=== PATIENT | female | born 1970 | race Caucasian/White ===

== ENCOUNTER 2021-12-10 12:00 | Emergency (ER) | payer OTHER, SELFPAY ==
--- NOTE | ~2021-12-10 | CT_ITS ---
EXAMINATION: CT abdomen pelvis w con DATE: 12/10/2021 13:10 INDICATION: Left lower quadrant abdominal pain. TECHNIQUE: Computed tomography (CT) of the abdomen and pelvis was performed with 100 mL Omnipaque 350 intravenous contrast. Automated exposure control and iterative reconstruction technique were employe d. The dose-length product was 1505.10 mGy-cm. COMPARISON: CT abdomen and pelvis 08/04/2016 FINDINGS: The visualized portions of the lung bases are clear without pneumonia or pleural effusion. The heart size is normal. No pericardial effusion. There is an 8 mm cyst in the liver. There are frost ges of cholecystectomy. The spleen, pancreas, adrenal glands, and kidneys are normal. There is a 1.9 cm fibroid in the uterus. There are no dilated loops of bowel. There is wall thickening of the rectos igmoid with fat stranding around the rectum, consistent with colitis. The appendix is normal. There i s electronic device in the right flank subcutaneous fat. There are no pathologically enlarged lymph n odes. There is no free intraperitoneal fluid. There is mild lumbar spondylosis. IMPRESSION: 1. Rectosigmoid colitis. Reviewed, dictated and finalized at location A. IMPRESSION: 1. Rectosigmoid colitis.
[2021-12-10 12:04] VITALS: BP 156/96; PULSE 113; RESP 16; TEMP 36.6; O2SAT 100
[2021-12-10 12:47] LABS: Basophils Percent Auto 0.4 % (0.2-1.2); Eosinophils Absolute Auto 0.1 K/mm3 (0-0.3); Eosinophils Percent Auto 1.3 % (0-4.4); Hematocrit 36.8 % (37.0-47.0); Hemoglobin 12.1 g/dL (12.0-15.0); Immature Granulocyte Percent A 1.1 % (0-0.5); Lymphocytes Absolute Auto 2.43 K/mm3 (0.9-3.2); Lymphocytes Percent Auto 25.9 % (18.3-44.2); Mean Corpuscular HGB Conc 32.9 g/dl (32-36); Mean Corpuscular Hemoglobin 29.2 pg (26-34); Mean Corpuscular Volume 88.7 fl (80-100); Mean Platelet Volume 9.3 fl (7.4-10.4); Monocytes Absolute Auto 0.6 K/mm3 (0.1-0.6); Monocytes Percent Auto 6.8 % (2.6-8.5); Neutrophils Percent Auto 64.5 % (45.5-73.1); Platelet Count Result 250 k/mm3 (150-375); Red Blood Count 4.15 M/mm3 (4.2-5.4); Red Cell Distribution Width 13.3 % (11.5-14.5); White Blood Count 9.4 K/mm3 (4.5-10.0)
[2021-12-10 12:48] VITALS: BP 159/92; PULSE 96; RESP 12; O2SAT 98
[2021-12-10] MEDS: SODIUM CHLORIDE 0.9% IV 1,000 ML 150 ML IV CONT (12:48)
[2021-12-10 12:56] LABS: Alanine Aminotransferase 71 U/L (4-35); Albumin Level 4.3 g/dL (3.5-5.1); Alkaline Phosphatase 140 U/L (38-126); Anion Gap 9 mmol/L (8-16); Aspartate Amino Transferase 49 U/L (14-36); Bilirubin,Total 0.2 mg/dL (0.2-1.3); Blood Urea Nitrogen 17 mg/dL (7-17); Calcium 8.8 mg/dL (8.4-10.2); Carbon Dioxide 26 mmol/L (22-30); Chloride 103 mmol/L (98-107); Estimated CRCL calculation 91 ml/min; Estimated Glomerular Filt Rate > 60; Glucose 110 mg/dL (65-110); Lipase 83 U/L (23-300); Potassium 3.9 mmol/L (3.4-5.0); Sodium 138 mmol/L (137-145)
[2021-12-10 13:06] LABS: Add Urine Microscopic? YES; Appearance Urine Cloudy (Clear); Bilirubin Urine Negative (Negative); Blood Urine Negative (Negative); Color Urine Amber (Yellow); Glucose Urine UA Negative (Negative); Ketones Urine Negative (Negative); Leukocyte Esterase Ur Negative LEU/UL (Negative); Mucus Urine Rare /lpf; Nitrate Urine Negative (Negative); Protein Urine Negative (Negative); RBC Urine 0-2 /hpf (0-2); Specific Grav Ur 1.026 (1.001-1.035); Squamous Epithelial Cell Urine Occasional /hpf (Few); Urobilinogen Urine Negative mg/dL (<2.0); WBC Urine 0-3 /hpf
--- NOTE | 2021-12-10 13:52 | ED.ABDPAIN ---
HPI - Abdominal Pain General Chief Complaint: Abdominal Pain Stated Complaint: constipatioin Time Seen by Provider: 12/10/21 12:08 Source: patient Mode of arrival: ambulatory Limitations: no limitations History of Present Illness HPI narrative: 51-year-old otherwise healthy here with complaints of rectal pain. Patient states that she feels constipated for past few days. She states that she gave herself enema with minimal results. She feels that something in the rectal area which is giving her a lot of discomfort. She denies any fever or chills. Denies any blood in the stool. No previous history of diverticulitis or colitis. MD elicited complaint: other (rectal pain) Pertinent past history: constipation Onset (ago): day(s) (3) Radiation: none Migration to: no migration Exacerbating factors: nothing Relieving factors: nothing Associated symptoms: denies other symptoms Related Data Home Medications Medication Instructions Recorded Confirmed nortriptyline 10 mg capsule 10 mg PO QHS 06/04/21 06/18/21 Allergies Allergy/AdvReac Type Severity Reaction Status Date / Time No Known Allergies Allergy Unknown Verified 06/04/21 10:31 Review of Systems Review of Systems: All systems reviewed & are unremarkable except as noted in HPI and below Constitutional: Constitutional: Reports no additional constitutional complaints Eyes: Eyes: Reports no additional eye complaints ENT: Reports system reviewed and no additional complaints, except as documented Cardiovascular: Cardiovascular: Reports no additional cardiovascular complaints Respiratory: Respiratory: Reports no additional respiratory complaints Gastrointestinal: Gastrointestinal: Reports as per HPI Genitourinary: Genitourinary: Reports no additional female genitourinary complaints Musculoskeletal: Musculoskeletal: Reports no additional musculoskeletal complaints Integumentary/Breasts: Skin/Breast: Reports system reviewed and no additional complaints, except as docu PMFSH Past Medical History Medical History Anxiety Weight loss counseling, encounter for Family History Family History Mother Family history of malignant neoplasm of breast in first degree relative Other Depression Diabetes mellitus Family history of cardiovascular disease Heart disease Hypertension Social History Social History Smoking status: Never smoker Alcohol intake: never Exam Narrative: GENERAL: Well-appearing, well-nourished, and in no acute distress. HEAD: Normocephalic, atraumatic. EYES: PERRLA and EOMI. NECK: Supple. CHEST: Clear to auscultation. No respiratory distress. HEART: Regular rate and rhythm. No murmur heard. Normal peripheral pulses. ABDOMEN: Soft, nontender, nondistended, normal active bowel sounds. EXTREMITIES: Normal range of motion. No edema. SKIN: Warm, dry, no rash. NEURO: No focal deficits. Alert and oriented x3. PSYCH: Normal mood and affect. Course Course Emergency Course: Patient comfortably resting in bed in no discomfort informed about her lab work, CT findings advised her to take antibiotic as prescribed. Eat high-fiber diet. Also recommended her to follow-up with the apron operator for possible sigmoidoscopy. Vital Signs Vital signs: Vital Signs Temperature 36.6 C 12/10/21 12:04 Pulse Rate 113 H 12/10/21 12:04 Respiratory Rate 16 12/10/21 12:04 Blood Pressure 156/96 H 12/10/21 12:04 Pulse Oximetry 100 12/10/21 12:04 Temperature 36.6 C 12/10/21 12:04 Pulse Rate 96 12/10/21 12:48 Respiratory Rate 12 12/10/21 12:48 Blood Pressure 159/92 H 12/10/21 12:48 Pulse Oximetry 98 12/10/21 12:48 MDM - Abdominal Pain Lab Data Result diagrams: 12/10/21 12:30 12/10/21 12:30 Labs: Lab Results 12/10/21 12/10/21
[2021-12-10 14:12] VITALS: BP 151/92; PULSE 79; RESP 18; O2SAT 98
== END 2021-12-10 14:13 | disposition home or self-care (01) ==
PROVIDERS: Emergency Provider Family Medicine; PCP Emergency Medicine
DX: K51.30 Ulcerative (chronic) rectosigmoiditis without complications (principal)
CPT/HCPCS: 36415; 74177; 80053; 81001; 83690; 85025; 96360; 99284; J7030; Q9967

== ENCOUNTER 2022-02-17 17:35 | Emergency (ER) | payer OTHER, SELFPAY ==
--- NOTE | ~2022-02-17 | XR_ITS ---
EXAM: XR toe 1st LT min 2V DATE: 02/17/2022 19:47 HISTORY: subung hematoma, r/o fx . COMPARISON: None available. FINDINGS: Decreased mineralization. No fracture or dislocation. No lytic or blastic lesion. Mild deg enerative change at the first MTP. Moderate hallux valgus. No erosion or periosteal change. Soft tiss ues within normal limits. IMPRESSION: No acute osseous finding in the left first toe. Reviewed, dictated and finalized at location K.
[2022-02-17 17:45] VITALS: BP 181/103; PULSE 120; RESP 20; TEMP 36.8; O2SAT 100
--- NOTE | 2022-02-17 19:11 | ED.GENADULT ---
HPI - General Adult General Chief complaint: Extremity Injury, Lower Stated complaint: toe discoloration Time Seen by Provider: 02/17/22 19:09 Source: patient Mode of arrival: ambulatory Limitations: no limitations History of Present Illness HPI narrative: Patient is a 51 y/o female who presents to the ED with c/o a subungual hematoma to her left first toe. Patient reports she has been moving into a new house over the last couple days and frequently moving heavy furniture for several hours a day. She denies any known injury to her left first toe but began having pain over the last day. She did note that her shoes were somewhat tight when she removed them at night. Today, she noticed blue/black discoloration under her left first toenail, which prompted her to come to the ED. She does state the pain feels like pressure under her nail. She denies any weakness, numbness, tingling. No other injuries. Related Data Home Medications Medication Instructions Recorded Confirmed nortriptyline 10 mg capsule 10 mg PO QHS 06/04/21 06/18/21 Allergies Allergy/AdvReac Type Severity Reaction Status Date / Time No Known Allergies Allergy Unknown Verified 06/04/21 10:31 Review of Systems Review of Systems: CONSTITUTIONAL: Denies fever. SKIN: Reports blue/white discoloration on her left first toenail. MUSCULOSKELETAL: Reports pain to left first toe. Denies foot pain. NEUROLOGIC: Denies numbness, tingling, or weakness. All systems reviewed & are unremarkable except as noted in HPI and below PMFSH Past Medical History Medical History Anxiety Weight loss counseling, encounter for Surgical History Surgical History (Updated 02/17/22 @ 19:40 by Carlie Salas PA-C) History of cholecystectomy History of surgery on wrist S/P insertion of spinal cord stimulator Family History Family History Mother Family history of malignant neoplasm of breast in first degree relative Other Depression Diabetes mellitus Family history of cardiovascular disease Heart disease Hypertension Social History Social History Smoking status: Never smoker Alcohol intake: never Exam Narrative: GENERAL: Well appearing, well-nourished, non-toxic, in no acute distress. HEAD: Normocephalic, atraumatic. RESPIRATORY: Airway patent, respirations nonlabored. CARDIOVASCULAR: Regular rate and rhythm without murmurs, rubs, or gallops. Peripheral pulses 2+ and equal bilaterally. MUSCULOSKELETAL: Moves all extremities. Strength/ROM intact without gross deformities. Subungual hematoma to L 1st toenail involving near entirety of nail. No TTP of L 1st toe joints. SKIN: Warm, dry, normal color. No rashes. NEURO: A&O X3. Speech clear. Cranial nerves II-XII grossly intact. Steady gait. No ataxic movements. PSYCHIATRIC: Appropriate mood and affect. Normal interaction. Course Vital Signs Vital signs: Vital Signs Temperature 98.2 F 02/17/22 17:45 Pulse Rate 120 H 02/17/22 17:45 Respiratory Rate 20 02/17/22 17:45 Blood Pressure 181/103 H 02/17/22 17:45 Pulse Oximetry 100 02/17/22 17:45 Oxygen Delivery Room Air 02/17/22 17:45 Temperature 98.2 F 02/17/22 17:45 Pulse Rate 72 02/17/22 20:31 Respiratory Rate 16 02/17/22 20:31 Blood Pressure 181/103 H 02/17/22 17:45 Pulse Oximetry 97 02/17/22 20:31 Oxygen Delivery Room Air 02/17/22 17:45 Procedures Nail Trephination Nail Trephination #1: Nail Trephination Date: 02/17/22 Nail Trephination Time: 20:00 Time out: Yes Location (toes): first digit Sterile prep: other (alcohol swab) Method of drainage: nail cautery Procedure successful: Yes Patient tolerated procedure: well and no complications Medical Decision Making MDM Narrative Medical decision making narr
[2022-02-17] MEDS: CEPHALEXIN 500 MG CAPSULE PO (20:27)
[2022-02-17 20:31] VITALS: PULSE 72; RESP 16; O2SAT 97
== END 2022-02-17 20:32 | disposition home or self-care (01) ==
PROVIDERS: Emergency Provider Emergency Medicine; PCP Emergency Medicine
DX: S90.112A Contusion of left great toe without damage to nail, initial encounter (principal); F41.9 Anxiety disorder, unspecified; X58.XXXA Exposure to other specified factors, initial encounter
CPT/HCPCS: 11740; 73660; 99283; A9270

== ENCOUNTER 2022-03-18 09:36 | Outpatient (CLI) | payer OTHER, SELFPAY ==
[2022-03-18 10:28] LABS: Alanine Aminotransferase 53 U/L (6-35); Albumin Level 4.6 g/dL (3.5-5.1); Alkaline Phosphatase 131 U/L (38-126); Aspartate Amino Transferase 47 U/L (14-36); Bilirubin,Total 0.6 mg/dL (0.2-1.3)
[2022-03-18 11:44] LABS: Hepatitis B Surface Antigen Negative (Negative)
[2022-03-18 11:50] LABS: HAV RESULT Negative (Negative); Hepatitis B Core IgM Result Negative (Negative)
[2022-03-18 12:01] LABS: Hepatitis B Surface Anti Res Negative; Hepatitis C Virus Antibody Negative (Negative)
[2022-03-21 19:08] LABS: Hepatitis A Antibody Total Nonreactive (Nonreactive)
== END 2022-03-18 09:37 | disposition home or self-care (01) ==
LOC: ANHLAB 09:38
PROVIDERS: PCP Emergency Medicine; Visit Provider Nurse Practitioner
DX: R79.89 Other specified abnormal findings of blood chemistry (principal); K52.9 Noninfective gastroenteritis and colitis, unspecified; E66.9 Obesity, unspecified
CPT/HCPCS: 36415; 80074; 80076; 86706; 86708

== ENCOUNTER 2022-04-07 07:42 | Emergency (ER) | payer OTHER, SELFPAY ==
--- NOTE | ~2022-04-07 | CT_ITS ---
EXAMINATION: CT lumbar spine wo con DATE: 04/07/2022 08:41 INDICATION: Right-sided lumbar radiculopathy. TECHNIQUE: Computed tomography (CT) of the lumbar spine was performed without intravenous contrast. A utomated exposure control and iterative reconstruction technique were employed. The dose-length produ ct was 1525.72 mGy-cm. COMPARISON: None FINDINGS: There is 3 mm anterolisthesis of L3 on L4. Vertebral body heights are normal. There is mild ly decreased disc height at L3-L4 and L5-S1 and moderately decreased disc height at L4-L5. Osseous ce ntral spinal canal is developmentally small at L3 and L4. The following disc levels are specifically discussed: L1-L2: The disc does not extend beyond the endplate margin. There is mild bilateral facet joint osteo arthritis. There is no neural foraminal stenosis. There is no central canal stenosis. L2-L3: There is a left foraminal protrusion. There is mild right and moderate left facet joint osteoa rthritis. There is mild left neural foraminal stenosis. There is no central canal stenosis. L3-L4: The disc is bulging. There is severe bilateral facet joint osteoarthritis. There is mild bilat eral neural foraminal stenosis. There is mild central canal stenosis. L4-L5: The disc is bulging. There is mild right and moderate left facet joint osteoarthritis. There i s moderate bilateral neural foraminal stenosis. There is mild central canal stenosis. L5-S1: The disc is bulging. There is moderate bilateral facet joint osteoarthritis. There is mild rig ht and moderate left neural foraminal stenosis. There is mild central canal stenosis. IMPRESSION: 1. Moderate lumbar spondylosis. Reviewed, dictated and finalized at location A.
[2022-04-07 07:44] VITALS: BP 177/118; PULSE 119; RESP 20; TEMP 36.6; O2SAT 98
--- NOTE | 2022-04-07 07:50 | ECG_ITS ---
Measurements Intervals [place] Rate: 118 P: 55 WA: 158 QRS: 40 QRSD: 89 T: 46 QT: 327 QTc: 459 Interpretive Statements SINUS TACHYCARDIA POSSIBLE ANTERIOR MYOCARDIAL INFARCTION , PROBABLY OLD Electronically Signed On 04-07-2022 11:41:29 CDT by David Fitzpatrick M.D.
--- NOTE | 2022-04-07 07:50 | ED.GENADULT ---
HPI - General Adult General Chief complaint: Unspecified Stated complaint: multiple complaints Time Seen by Provider: 04/07/22 07:49 Source: patient Mode of arrival: ambulatory Limitations: no limitations History of Present Illness HPI narrative: 51 years old white female came to the emergency room by private car complaining of pain at the right lower back, right buttock radiating to the right foot for a while, got worse over the last 4 weeks. Patient denies bowel dysfunction, bladder dysfunction, altered sensation, focal weakness, or saddle numbness,. Patient moved to a new house 3 weeks ago with a lot of lifting. She denies any fever, chills, nausea, vomiting, chest pain, shortness of breath. History of colitis, hypothyroidism, depression, GERD. She does not smoke or drink or uses drugs. Related Data Home Medications Medication Instructions Recorded Confirmed nortriptyline 10 mg capsule 10 mg PO QHS 06/04/21 06/18/21 Allergies Allergy/AdvReac Type Severity Reaction Status Date / Time No Known Allergies Allergy Unknown Verified 04/07/22 07:52 Review of Systems Review of Systems: All systems reviewed & are unremarkable except as noted in HPI and below PMFSH Past Medical History Medical History Anxiety Colitis Elevated LFTs Weight loss counseling, encounter for Surgical History Surgical History History of cholecystectomy History of surgery on wrist S/P insertion of spinal cord stimulator Family History Family History Mother Family history of malignant neoplasm of breast in first degree relative Other Depression Diabetes mellitus Family history of cardiovascular disease Heart disease Hypertension Social History Social History Smoking status: Never smoker Alcohol intake: never Exam Narrative: General appearance: Well-developed, well-nourished Skin: Normal color Head: Normocephalic, nontraumatic Eyes: Clear conjunctiva ENT: Oropharynx normal, ears normal, nose normal Neck: Supple, nontender Chest and respiratory: Airway patent, no respiratory distress, no accessory muscle use Heart: Regular rate/rhythm Abdomen: Soft, nontender, no organomegaly, quiet bowel sounds Vascular: Normal peripheral pulses, normal capillary refill. Musculoskeletal: Normal range of motion, nontender back Neurologic: Alert and oriented ?3, positive right straight leg raise test Course Vital Signs Vital signs: Vital Signs Temperature 36.6 C 04/07/22 07:44 Pulse Rate 119 H 04/07/22 07:44 Respiratory Rate 20 04/07/22 07:44 Blood Pressure 177/118 H 04/07/22 07:44 Pulse Oximetry 98 04/07/22 07:44 Temperature 36.6 C 04/07/22 07:44 Pulse Rate 84 04/07/22 09:02 Respiratory Rate 15 04/07/22 09:02 Blood Pressure 139/77 04/07/22 09:02 Pulse Oximetry 95 04/07/22 09:02 Medical Decision Making Vital Signs Vital Signs: Vital Signs Temperature 36.6 C 04/07/22 07:44 Pulse Rate 119 H 04/07/22 07:44 Respiratory Rate 20 04/07/22 07:44 Blood Pressure 177/118 H 04/07/22 07:44 Pulse Oximetry 98 04/07/22 07:44 Temperature 36.6 C 04/07/22 07:44 Pulse Rate 84 04/07/22 09:02 Respiratory Rate 15 04/07/22 09:02 Blood Pressure 139/77 04/07/22 09:02 Pulse Oximetry 95 04/07/22 09:02 Lab Data Result diagrams: 04/07/22 07:58 04/07/22 07:58 Labs: Lab Results 04/07/22 04/07/22 04/07/22 Range/Units 07:58 07:58 07:58 WBC 6.5
[2022-04-07 08:06] LABS: Basophils Percent Auto 0.6 % (0.2-1.2); Eosinophils Absolute Auto 0.3 K/mm3 (0-0.3); Eosinophils Percent Auto 4.1 % (0-4.4); Hematocrit 35.1 % (37.0-47.0); Hemoglobin 11.7 g/dL (12.0-15.0); Immature Granulocyte Absolute 0.05 K/mm3 (0.00-0.031); Immature Granulocyte Percent A 0.8 % (0-0.5); Lymphocytes Absolute Auto 2.44 K/mm3 (0.9-3.2); Lymphocytes Percent Auto 37.4 % (18.3-44.2); Mean Corpuscular HGB Conc 33.3 g/dl (32-36); Mean Corpuscular Hemoglobin 29.7 pg (26-34); Mean Corpuscular Volume 89.1 fl (80-100); Monocytes Absolute Auto 0.5 K/mm3 (0.1-0.6); Monocytes Percent Auto 7.2 % (2.6-8.5); Neutrophils Absolute Auto 3.3 K/mm3 (1.3-6.7); Neutrophils Percent Auto 49.9 % (45.5-73.1); Platelet Count Result 253 k/mm3 (150-375); Red Blood Count 3.94 M/mm3 (4.2-5.4); Red Cell Distribution Width 13.9 % (11.5-14.5); White Blood Count 6.5 K/mm3 (4.5-10.0)
[2022-04-07 08:15] LABS: Alanine Aminotransferase 19 U/L (6-35); Albumin Level 4.6 g/dL (3.5-5.1); Alkaline Phosphatase 89 U/L (38-126); Anion Gap 10 mmol/L (8-16); Aspartate Amino Transferase 26 U/L (14-36); Bilirubin,Total 0.4 mg/dL (0.2-1.3); Blood Urea Nitrogen 22 mg/dL (7-17); Calcium 9.5 mg/dL (8.4-10.2); Carbon Dioxide 26 mmol/L (22-30); Chloride 104 mmol/L (98-107); Estimated CRCL calculation 102 ml/min; Estimated Glomerular Filt Rate > 60; Glucose 114 mg/dL (65-110); Lipase 84 U/L (23-300); Potassium 4.1 mmol/L (3.4-5.0); Sodium 140 mmol/L (137-145)
[2022-04-07 08:17] LABS: Prothrombin Time 12.9 Seconds (11.1-14.7)
[2022-04-07 08:18] LABS: Partial Thromboplastin Time 29.2 SECONDS (22.3-36.8)
[2022-04-07 08:24] LABS: D Dimer < 0.27 ug/mL (<0.48)
[2022-04-07 08:31] LABS: NT Pro B Type Natriuretic Pept 57 pg/mL (5-100); Troponin I < 0.012 ng/mL (0.000-0.034)
[2022-04-07] MEDS: HYDROmorphone HCL INJ (*CRX) 1 MG/ML SYR 0.5 MG IV PUSH (08:45)
[2022-04-07] MEDS: ONDANSETRON INJ 4 MG/2 ML VIAL IV PUSH (08:45)
[2022-04-07 08:50] VITALS: BP 150/91; PULSE 92; RESP 12; O2SAT 97
[2022-04-07 09:00] VITALS: PULSE 92; RESP 15; O2SAT 96
[2022-04-07 09:02] VITALS: BP 139/77; PULSE 84; RESP 15; O2SAT 95
[2022-04-07 09:20] VITALS: BP 139/77; PULSE 85; RESP 13; O2SAT 97
== END 2022-04-07 09:23 | disposition home or self-care (01) ==
PROVIDERS: Emergency Provider Emergency Medicine; PCP Emergency Medicine
DX: M54.41 Lumbago with sciatica, right side (principal); F41.9 Anxiety disorder, unspecified; M47.816 Spondylosis without myelopathy or radiculopathy, lumbar region; R00.0 Tachycardia, unspecified
CPT/HCPCS: 36415; 72131; 80053; 83690; 83880; 84484; 85025; 85380; 85610; 85730; 93005; 96374; 96375; 99284; J1100; J1170; J2405

== ENCOUNTER 2022-05-18 09:31 | Emergency (ER) | payer OTHER, SELFPAY ==
--- NOTE | ~2022-05-18 | CT_ITS ---
EXAMINATION: CT abdomen pelvis w con DATE: 05/18/2022 10:43 INDICATION: Low abdominal pain. Nausea. Diarrhea. TECHNIQUE: Computed tomography (CT) of the abdomen and pelvis was performed with 100 mL Omnipaque 350 intravenous contrast. Automated exposure control and iterative reconstruction technique were employe d. The dose-length product was 1605.66 mGy-cm. COMPARISON: CT abdomen and pelvis 12/10/2021 FINDINGS: The visualized portions of the lung bases are clear without pneumonia or pleural effusion. The heart size is normal. No pericardial effusion. There is a 7 mm cyst in the liver. There are dewitt es of cholecystectomy. The pancreas, spleen, adrenal glands, and kidneys are normal. There are no dil ated loops of bowel. The appendix is normal. There are no pathologically enlarged lymph nodes. There is no free intraperitoneal fluid. There is an electronic device in the right flank subcutaneous fat. There is mild lumbar spondylosis. IMPRESSION: 1. No etiology for the patient's symptoms. Reviewed, dictated and finalized at location A.
[2022-05-18 09:37] VITALS: BP 165/109; PULSE 117; RESP 16; TEMP 36.1; O2SAT 99
[2022-05-18 09:58] LABS: Basophils Percent Auto 0.2 % (0.2-1.2); Eosinophils Percent Auto 0.3 % (0-4.4); Hematocrit 34.7 % (37.0-47.0); Hemoglobin 11.1 g/dL (12.0-15.0); Immature Granulocyte Absolute 0.29 K/mm3 (0.00-0.031); Immature Granulocyte Percent A 2.9 % (0-0.5); Lymphocytes Percent Auto 25.3 % (18.3-44.2); Mean Corpuscular Hemoglobin 30.1 pg (26-34); Mean Platelet Volume 8.3 fl (7.4-10.4); Monocytes Absolute Auto 0.6 K/mm3 (0.1-0.6); Monocytes Percent Auto 5.6 % (2.6-8.5); Neutrophils Absolute Auto 6.5 K/mm3 (1.3-6.7); Neutrophils Percent Auto 65.7 % (45.5-73.1); Nucleated Red Blood Cells Perc 0.2 % (0.0-0.2); Platelet Count Result 228 k/mm3 (150-375); Red Blood Count 3.69 M/mm3 (4.2-5.4); Red Cell Distribution Width 15.5 % (11.5-14.5); White Blood Count 9.9 K/mm3 (4.5-10.0)
[2022-05-18 10:16] LABS: Alanine Aminotransferase 25 U/L (6-35); Albumin Level 3.9 g/dL (3.5-5.1); Alkaline Phosphatase 105 U/L (38-126); Anion Gap 8 mmol/L (8-16); Aspartate Amino Transferase 21 U/L (14-36); Bilirubin,Total 0.3 mg/dL (0.2-1.3); Blood Urea Nitrogen 24 mg/dL (7-17); Calcium 8.7 mg/dL (8.4-10.2); Carbon Dioxide 23 mmol/L (22-30); Chloride 105 mmol/L (98-107); Estimated CRCL calculation 103 ml/min; Estimated Glomerular Filt Rate > 60; Glucose 98 mg/dL (65-110); Lipase 58 U/L (23-300); Potassium 4.2 mmol/L (3.4-5.0); Sodium 136 mmol/L (137-145)
--- NOTE | 2022-05-18 10:25 | ED.NAVMDI ---
HPI - Nausea/Vomiting/Diarrhea General Chief complaint: Nausea/Vomiting/Diarrhea Stated complaint: back pain, nausea Time Seen by Provider: 05/18/22 10:16 History of Present Illness HPI Narrative: 51-year-old female with a history of IBS and lumbar spinal stenosis presents to the emergency room for evaluation of lower back pain that radiates into her left leg and left lower quadrant abdominal pain. Patient states she is being treated for sciatica by her PCP and is taking 40 mL grams of steroids daily for the last 2 weeks. Patient is also under the care of a GI physician for her IBS. Patient states her lower back pain is worse with ambulation. Denies nausea vomiting or constipation. Denies any blood in her stool. Related Data Home Medications Medication Instructions Recorded Confirmed nortriptyline 10 mg capsule 10 mg PO QHS 06/04/21 04/21/22 Allergies Allergy/AdvReac Type Severity Reaction Status Date / Time No Known Allergies Allergy Unknown Verified 04/21/22 12:45 Review of Systems Review of Systems: CONSTITUTIONAL: Denies fever, chills, or sweats. EYES: Denies visual changes, redness, or discharge. ENT: Denies rhinorrhea, congestion, sore throat, or otalgia. CARDIOVASCULAR: Denies chest pain, palpitations, or edema. RESPIRATORY: Denies cough or dyspnea. GASTROINTESTINAL: Reports left lower quadrant abdominal pain GENITOURINARY: Denies dysuria or hematuria. SKIN: Denies rash or itching. MUSCULOSKELETAL: Reports lower back pain NEUROLOGIC: Denies headache, numbness, dizziness, or weakness. PSYCHIATRIC: Denies anxiety or depression. [facility] Past Medical History Medical History Anxiety Colitis Elevated LFTs Weight loss counseling, encounter for Surgical History Surgical History History of cholecystectomy History of surgery on wrist S/P insertion of spinal cord stimulator Family History Family History Mother Family history of malignant neoplasm of breast in first degree relative Other Depression Diabetes mellitus Family history of cardiovascular disease Heart disease Hypertension Social History Social History Smoking status: Never smoker Alcohol intake: never Spiritual care concerns: No Exam Narrative: GENERAL: Well-appearing, well-nourished, no physical limitations, and in no acute distress. HEAD: Normocephalic, atraumatic. EYES: Conjunctivae normal, PERRLA and EOMI.VD CHEST: Clear to auscultation. No respiratory distress. No wheezes rales or rhonchi. No tenderness. HEART: Regular rate and rhythm. No murmur heard. Normal peripheral pulses. ABDOMEN: Soft, left lower quadrant tenderness, morbidly obese, normal active bowel sounds. BACK: No CVA tenderness; No midline lumbar tenderness, no step-offs, no bony abnormality; FROM EXTREMITIES: Normal range of motion. No edema. No clubbing or cyanosis. -SLE LLE SKIN: Warm, dry, no rash. No noted wounds NEURO: No focal deficits. Alert and oriented x3. MAEW. CN's II-XI intact bilaterally, normal gait PSYCH: Cooperative. Normal mood and affect. Course Vital Signs Vital signs: Vital Signs Temperature 36.1 C L 05/18/22 09:37 Pulse Rate 117 H 05/18/22 09:37 Respiratory Rate 16 05/18/22 09:37 Blood Pressure 165/109 H 05/18/22 09:37 Pulse Oximetry 99 05/18/22 09:37 Oxygen Delivery Room Air 05/18/22 09:37 Temperature 36.1 C L 05/18/22 09:37 Pulse Rate 117 H 05/18/22 09:37 Respiratory Rate 16 05/18/22 09:37 Blood Pressure 165/109 H 05/18/22 09:37 Pulse Oximetry 99 05/18/22 09:37 Oxygen Delivery Room Air 05/18/22 09:37 MDM - Nausea/Vomiting/Diarrhea MDM Narrative Medical decision making narrative: 51-year-old female presented to the emergency room with complaints of lower back pain
[2022-05-18] MEDS: SODIUM CHLORIDE 0.9% IV 1,000 ML 999 ML IV CONT (11:00)
[2022-05-18] MEDS: DICYCLOMINE HCL INJ 20 MG/2 ML VIAL IM (11:11)
[2022-05-18 11:39] LABS: Appearance Urine Clear (Clear); Bilirubin Urine Negative (Negative); Blood Urine Negative (Negative); Color Urine Yellow (Yellow); Glucose Urine UA Negative (Negative); Ketones Urine Negative (Negative); Leukocyte Esterase Ur Negative LEU/UL (Negative); Nitrate Urine Negative (Negative); Protein Urine Negative (Negative); Urobilinogen Urine 0.2 mg/dL (<2.0); pH Urine 5.5 (5.0-9.0)
[2022-05-18] MEDS: methocarbamoL 750 MG TABLET PO (11:39)
[2022-05-18 11:49] LABS: Mucus Urine Rare /lpf; RBC Urine 0-2 /hpf (0-2); Squamous Epithelial Cell Urine Rare /hpf (Few); WBC Urine 0-3 /hpf
[2022-05-18 11:54] LABS: Add Urine Microscopic? NO
[2022-05-18 13:07] VITALS: BP 149/94; PULSE 97; RESP 18; O2SAT 98
== END 2022-05-18 13:09 | disposition home or self-care (01) ==
PROVIDERS: Emergency Provider Nurse Practitioner Family; PCP Emergency Medicine
DX: M54.42 Lumbago with sciatica, left side (principal); R10.32 Left lower quadrant pain; F41.9 Anxiety disorder, unspecified
CPT/HCPCS: 36415; 74177; 80053; 81003; 81025; 83690; 85025; 96360; 96372; 99283; A9270; J0500; J7030; Q9967

== ENCOUNTER 2022-08-26 09:26 | Emergency (ER) | payer OTHER, SELFPAY ==
[2022-08-26] VITALS (32 sets, daily range): BP systolic 118–161; BP diastolic 82–112; PULSE 99–150; RESP 9–31; TEMP 36.4; O2SAT 92–100
--- NOTE | ~2022-08-26 | CT_ITS ---
CT Abdomen and Pelvis with contrast. History: Abdominal pain. Spiral CT of the abdomen and pelvis was performed after the administration of intravenous contrast. 1 00 cc of Omnipaque 350 was administered intravenously without complication. Dose reduction technique was used on this scan by utilizing automated exposure control and iterative reconstruction technique. The dose-length product (DLP) was 1433.63 mGy-cm. COMPARISON: 05/18/2022 Findings: Scans through the lung bases are unremarkable. The liver, spleen, pancreas, adrenals and kidneys are within normal limits. Cholecystectomy clips not ed. No evidence of aortic aneurysm. No lymphadenopathy is seen. There is no evidence of bowel obstruction. There is no evidence to suggest acute appendicitis or dive rticulitis. Images through the pelvis were performed. Urinary bladder unremarkable. No adnexal mass seen. No asci henrry. No ascites is seen. Stable electronic device noted. Impression: No significant abnormalities seen. Reviewed, dictated and finalized at location . [employer] Impression: No significant abnormalities seen.
[2022-08-26 10:22] LABS: Add Urine Microscopic? YES; Appearance Urine Clear (Clear); Bilirubin Urine Negative (Negative); Blood Urine Negative (Negative); Color Urine Light Yellow (Yellow); Glucose Urine UA Negative (Negative); Ketones Urine 2+ mg/dL (Negative); Leukocyte Esterase Ur Negative LEU/UL (Negative); Nitrate Urine Negative (Negative); Protein Urine Negative (Negative); Specific Grav Ur <= 1.005 (1.001-1.035); Urobilinogen Urine 0.2 mg/dL (<2.0)
[2022-08-26 10:22] LABS: Basophils Absolute Auto 0.1 K/mm3 (0.0-0.1); Basophils Percent Auto 0.7 % (0.2-1.2); Eosinophils Absolute Auto 0.1 K/mm3 (0-0.3); Eosinophils Percent Auto 0.5 % (0-4.4); Hematocrit 45.5 % (37.0-47.0); Hemoglobin 14.9 g/dL (12.0-15.0); Immature Granulocyte Absolute 0.08 K/mm3 (0.00-0.031); Immature Granulocyte Percent A 0.8 % (0-0.5); Lymphocytes Absolute Auto 3.55 K/mm3 (0.9-3.2); Lymphocytes Percent Auto 37.3 % (18.3-44.2); Mean Corpuscular HGB Conc 32.7 g/dl (32-36); Mean Corpuscular Hemoglobin 30.1 pg (26-34); Mean Corpuscular Volume 91.9 fl (80-100); Mean Platelet Volume 8.9 fl (7.4-10.4); Monocytes Absolute Auto 1.1 K/mm3 (0.1-0.6); Monocytes Percent Auto 11.1 % (2.6-8.5); Neutrophils Absolute Auto 4.7 K/mm3 (1.3-6.7); Neutrophils Percent Auto 49.6 % (45.5-73.1); Platelet Count Result 394 k/mm3 (150-375); Red Blood Count 4.95 M/mm3 (4.2-5.4); Red Cell Distribution Width 15.9 % (11.5-14.5); White Blood Count 9.5 K/mm3 (4.5-10.0)
[2022-08-26 10:27] LABS: Bacteria Urine Trace /hpf; Mucus Urine Rare /lpf; RBC Urine 0-2 /hpf (0-2); Squamous Epithelial Cell Urine Occasional /hpf (Few); WBC Urine 0-3 /hpf
[2022-08-26 10:38] LABS: Alanine Aminotransferase 16 U/L (6-35); Albumin Level 4.3 g/dL (3.5-5.1); Alkaline Phosphatase 179 U/L (38-126); Anion Gap 13 mmol/L (8-16); Aspartate Amino Transferase 23 U/L (14-36); Bilirubin,Total 0.3 mg/dL (0.2-1.3); Blood Urea Nitrogen 10 mg/dL (7-17); Carbon Dioxide 19 mmol/L (22-30); Chloride 105 mmol/L (98-107); Estimated CRCL calculation 101 ml/min; Estimated Glomerular Filt Rate > 60; Glucose 102 mg/dL (65-110); Lactic Acid Reflex 2.2 mmol/L (0.7-2.0); Lipase 54 U/L (23-300); Potassium 2.9 mmol/L (3.4-5.0); Sodium 137 mmol/L (137-145)
--- NOTE | 2022-08-26 10:40 | ED.NAVMDI ---
HPI - Nausea/Vomiting/Diarrhea General Chief complaint: Nausea/Vomiting/Diarrhea Stated complaint: n/v/d x 4 days, decreased PO intake Time Seen by Provider: 08/26/22 09:38 Source: patient Mode of arrival: ambulatory Limitations: no limitations History of Present Illness HPI Narrative: Patient is a 51-year-old female who presents the ED with report of nausea, vomiting, diarrhea. Patient reports she first began feeling unwell on Wednesday with nausea and vomiting. Symptoms have persisted. She was unable to keep down any food or fluid last night into today, which prompted her presentation. She also reports having some lower abdominal pain, as well as subjective fevers, chills, cough, congestion, body aches, headache. Patient reports a history of colitis and is currently on Linzess. Denies rectal bleeding, dysuria, hematuria, chest pain, difficulty breathing. Related Data Home Medications Medication Instructions Recorded Confirmed nortriptyline 10 mg capsule 10 mg PO QHS 06/04/21 05/27/22 Allergies Allergy/AdvReac Type Severity Reaction Status Date / Time No Known Allergies Allergy Unknown Verified 08/26/22 09:31 Review of Systems Review of Systems: CONSTITUTIONAL: Reports subjective fevers, chills. ENT: Reports congestion. Denies rhinorrhea, sore throat. CARDIOVASCULAR: Denies chest pain. RESPIRATORY: Reports cough. Denies dyspnea. GASTROINTESTINAL: Reports lower abdominal pain, nausea, vomiting, and diarrhea. Denies constipation, rectal bleeding. GENITOURINARY: Denies dysuria or hematuria. MUSCULOSKELETAL: Reports myalgias. NEUROLOGIC: Reports BOUCHER. All systems reviewed & are unremarkable except as noted in HPI and below PMFSH Past Medical History Medical History Anxiety Colitis Constipation Elevated LFTs Rectal pain, chronic Tenesmus (rectal) Weight loss counseling, encounter for Surgical History Surgical History History of cholecystectomy History of surgery on wrist S/P insertion of spinal cord stimulator Family History Family History Mother Family history of malignant neoplasm of breast in first degree relative Other Depression Diabetes mellitus Family history of cardiovascular disease Heart disease Hypertension Social History Social History Smoking status: Never smoker Alcohol intake: never Spiritual care concerns: No Exam Narrative: GENERAL: Mildly ill appearing, morbidly obese, non-toxic, in no acute distress. HEAD: Normocephalic, atraumatic. ENT: MMs dry. NECK: Supple. No adenopathy, no masses. RESPIRATORY: Airway patent, respirations nonlabored. Clear to auscultation bilaterally, no rales, rhonchi, wheezing. CARDIOVASCULAR: Regular rate and rhythm without murmurs, rubs, or gallops. Radial pulses 2+ and equal bilaterally. ABDOMINAL: Soft, diffuse lower abdominal tenderness to palpation, worst in LLQ, nondistended, no hepatosplenomegaly. Normoactive BS. MUSCULOSKELETAL: Moves all extremities. Strength/ROM intact without gross deformities. SKIN: Warm, dry, normal color. No rashes. NEURO: A&O X3. Speech clear. Cranial nerves II-XII grossly intact. Steady gait. No ataxic movements. PSYCHIATRIC: Appropriate mood and affect. Normal interaction. Course Vital Signs Vital signs: Vital Signs Temperature 97.6 F 08/26/22 09:28 Pulse Rate 150 H 08/26/22 09:28 Respiratory Rate 18 08/26/22 09:28 Blood Pressure 118/90 08/26/22 09:28 Pulse Oximetry 100 08/26/22 09:28 Temperature 97.6 F 08/26/22 09:28 Pulse Rate 109 H 08/26/22 15:03 Respiratory Rate 12 08/26/22 15:03 Blood Pressure 139/97 H 08/26/22 15:03 Pulse Oximetry 100 08/26/22 15:03 MDM - Nausea/Vomiting/Diarrhea MDM Narrative Medical decision making narrat
[2022-08-26] MEDS: SODIUM CHLORIDE 0.9% IV 1,000 ML 999 ML IV CONT ×2 (11:08→12:18)
[2022-08-26] MEDS: ONDANSETRON INJ 4 MG/2 ML VIAL IV PUSH ×2 (11:09→13:24)
[2022-08-26 11:39] LABS: Magnesium 1.9 mg/dL (1.6-2.3)
[2022-08-26 11:48] LABS: Influenza A QL RT-PCR Negative (Negative); Influenza B QL RT-PCR Negative (Negative); SARS-CoV-2 RNA PCR Negative
[2022-08-26 13:14] LABS: Reflex Lactic Acid Yes or No Add Lactic
[2022-08-26] MEDS: POTASSIUM CHLORIDE 20 MEQ TABLET 40 MEQ PO ×2 (13:16)
[2022-08-26 14:48] LABS: Lactic Acid 0.9 mmol/L (0.7-2.0)
--- NOTE | 2022-08-26 15:03 | PC.NURSE ---
patient refuses to receive 2nd liter of NS. she states, I ate jello and I am feeling better, I'm ready to go home . Provider aware
== END 2022-08-26 15:52 | disposition home or self-care (01) ==
PROVIDERS: Emergency Provider Physician Assistant; PCP Emergency Medicine
DX: R11.2 Nausea with vomiting, unspecified (principal); E87.6 Hypokalemia; E86.0 Dehydration; Z20.822 Contact with and (suspected) exposure to COVID-19; Z96.82 Presence of neurostimulator
CPT/HCPCS: 36415; 74177; 80053; 81001; 83605; 83690; 83735; 85025; 87636; 96361; 96374; 96375; 96376; 99284; A9270; J0131; J2405; J7030; Q9967

== ENCOUNTER 2022-11-10 10:38 | Outpatient (CLI) | payer OTHER, SELFPAY ==
--- NOTE | 2022-11-10 10:48 | ECG_ITS ---
Measurements Intervals [place] Rate: 98 P: 48 NC: 149 QRS: 0 QRSD: 90 T: 20 QT: 354 QTc: 453 Interpretive Statements SINUS RHYTHM POSSIBLE LEFT ATRIAL ENLARGEMENT MINIMAL Q WAVES- INFERIOR LEADS BORDERLINE ECG COMPARED TO ECG 04/07/2022 07:54:25 SINUS RHYTHM NOW PRESENT Electronically Signed On 11-10-2022 13:14:36 PLASTIC MANAGER by Rl Sofia D.O.
== END 2022-11-10 10:39 | disposition home or self-care (01) ==
LOC: ANHCARD 10:40
PROVIDERS: PCP Emergency Medicine; Visit Provider Emergency Medicine
DX: R00.2 Palpitations (principal)
CPT/HCPCS: 93005

== ENCOUNTER 2023-05-17 12:01 | Emergency (ER) | payer OTHER, SELFPAY ==
[2023-05-17] VITALS (17 sets, daily range): BP systolic 129–148; BP diastolic 84–92; PULSE 72–75; RESP 16–20; TEMP 36.9; O2SAT 98–100
--- NOTE | ~2023-05-17 | CT_ITS ---
EXAMINATION: CT abdomen pelvis w con DATE: 05/17/2023 17:15 INDICATION: left flank pain, abdominal pain TECHNIQUE: Computed tomography (CT) of the abdomen and pelvis was performed with 100 mL Omnipaque-350 intravenous contrast. Automated exposure control and iterative reconstruction technique were employe d. The dose-length product was 1582.22 mGy-cm. COMPARISON: 08/26/2022. FINDINGS: Lower thorax: Unremarkable Liver: Simple left liver lobe cyst. Biliary/Gallbladder: Gallbladder is absent. No bile duct dilation. Pancreas: No mass or duct dilation. Spleen: Normal. Adrenals:No mass. Kidneys: No suspicious mass, obstructing stone, or hydronephrosis. GI tract: No small or large bowel dilation. Normal appendix. Mesentery/Peritoneum: No ascites, mass, or free air. Retroperitoneum: No mass. Pelvis: Normal uterus and left ovary. 2.1 cm exophytic right lower quadrant cyst probably associated with the right ovary but may also represent an enteric duplication cyst, unchanged. Soft Tissues: Small uncomplicated fat-containing bilateral inguinal and umbilical hernias. Right post erior subcutaneous stimulator pack. Bones: No acute osseous finding. IMPRESSION: No acute abdominopelvic process detected. Reviewed, dictated and finalized at location K.
[2023-05-17 13:32] LABS: Basophils Absolute Auto 0.1 K/mm3 (0.0-0.1); Basophils Percent Auto 0.7 % (0.2-1.2); Eosinophils Absolute Auto 0.1 K/mm3 (0-0.3); Eosinophils Percent Auto 1.2 % (0-4.4); Hematocrit 43.5 % (37.0-47.0); Hemoglobin 14.4 g/dL (12.0-15.0); Immature Granulocyte Absolute 0.06 K/mm3 (0.00-0.031); Immature Granulocyte Percent A 0.7 % (0-0.5); Lymphocytes Percent Auto 27.9 % (18.3-44.2); Mean Corpuscular HGB Conc 33.1 g/dl (32-36); Mean Corpuscular Hemoglobin 29.4 pg (26-34); Mean Corpuscular Volume 88.8 fl (80-100); Mean Platelet Volume 9.4 fl (7.4-10.4); Monocytes Absolute Auto 0.5 K/mm3 (0.1-0.6); Monocytes Percent Auto 5.8 % (2.6-8.5); Neutrophils Absolute Auto 5.5 K/mm3 (1.3-6.7); Neutrophils Percent Auto 63.7 % (45.5-73.1); Platelet Count Result 250 k/mm3 (150-375); Red Cell Distribution Width 14.5 % (11.5-14.5); White Blood Count 8.6 K/mm3 (4.5-10.0)
[2023-05-17 13:35] LABS: Appearance Urine Clear (Clear); Bacteria Urine None Seen /hpf; Bilirubin Urine Negative (Negative); Blood Urine Negative (Negative); Color Urine Yellow (Yellow); Glucose Urine UA Negative (Negative); Ketones Urine Negative (Negative); Leukocyte Esterase Ur Negative LEU/UL (Negative); Nitrate Urine Negative (Negative); Non Pathogenic Casts 0-2; Protein Urine 1+ mg/dL (Negative); RBC Urine 0-2 /hpf (0-2); Squamous Epithelial Cell Urine None seen /hpf (Few); Urobilinogen Urine 0.2 mg/dL (<2.0)
[2023-05-17 13:41] LABS: Specific Grav Ur 1.048 (1.001-1.035)
[2023-05-17 13:42] LABS: Add Urine Microscopic? YES
[2023-05-17 13:46] LABS: Alanine Aminotransferase 26 U/L (6-35); Albumin Level 4.7 g/dL (3.5-5.1); Alkaline Phosphatase 101 U/L (38-126); Anion Gap 13 mmol/L (8-16); Aspartate Amino Transferase 30 U/L (14-36); Bilirubin,Total 0.3 mg/dL (0.2-1.3); Blood Urea Nitrogen 19 mg/dL (7-17); Calcium 9.4 mg/dL (8.4-10.2); Carbon Dioxide 23 mmol/L (22-30); Chloride 107 mmol/L (98-107); Estimated CRCL calculation 83 ml/min; Estimated Glomerular Filt Rate > 60; Glucose 104 mg/dL (65-110); Lipase 60 U/L (23-300); Potassium 3.8 mmol/L (3.4-5.0); Sodium 143 mmol/L (137-145)
[2023-05-17] MEDS: SODIUM CHLORIDE 0.9% IV 1,000 ML 999 ML IV CONT (16:54)
--- NOTE | 2023-05-17 17:45 | ED.FEMALEGU ---
HPI - Female Genitourinary General Chief complaint: Urogenital-Female Stated complaint: kidney stone Time Seen by Provider: 05/17/23 15:54 Source: patient Mode of arrival: ambulatory Limitations: no limitations History of Present Illness HPI Narrative: This is a 52 year old female that presents to the ER for dysuria. Ongoing over the last couple of days. Associated with back pain and urinary frequency. She was seen at urgent care and sent to the ER for further evaluation. Denies fever or vomiting. Related Data Allergies Allergy/AdvReac Type Severity Reaction Status Date / Time No Known Allergies Allergy Unknown Verified 12/08/22 10:29 Review of Systems Review of Systems: CONSTITUTIONAL: Denies fever GASTROINTESTINAL: Reports abdominal pain. Denies nausea, vomiting, or diarrhea. GENITOURINARY: Reports dysuria. Denies hematuria. All systems reviewed & are unremarkable except as noted in HPI and below PMFSH Past Medical History Medical History Anxiety BMI 40.0-44.9, adult Colitis Constipation Depression Dysthymic disorder Elevated LFTs Essential (primary) hypertension Hydrops of gallbladder Rectal pain, chronic Slow transit constipation Tenesmus (rectal) Vitamin D deficiency Weight loss counseling, encounter for Surgical History Surgical History History of cholecystectomy History of surgery on wrist S/P cholecystectomy S/P insertion of spinal cord stimulator Family History Family History Mother Family history of malignant neoplasm of breast in first degree relative Other Depression Diabetes mellitus Family history of cardiovascular disease Heart disease Hypertension Social History Social History Smoking status: Never smoker Alcohol intake: never Living arrangements: with family Spiritual care concerns: No Exam Narrative: GENERAL: Well-appearing, well-nourished, and in no acute distress. HEAD: Normocephalic, atraumatic. EYES: EOMI. CHEST: Clear to auscultation. No respiratory distress. No wheezes rales or rhonchi HEART: Regular rate and rhythm. No murmur heard. Normal peripheral pulses. ABDOMEN: Soft, nontender, nondistended, normal active bowel sounds. No CVA tenderness EXTREMITIES: Normal range of motion. No edema. SKIN: Warm, dry, no rash. NEURO: No focal deficits. Alert and oriented x3. PSYCH: Normal mood and affect Course Course Emergency Course: Patient and family updated on workup and agree with plan of care Vital Signs Vital signs: Vital Signs Temperature 98.4 F 05/17/23 12:59 Pulse Rate 75 05/17/23 12:59 Respiratory Rate 16 05/17/23 12:59 Blood Pressure 129/88 05/17/23 12:59 Pulse Oximetry 98 05/17/23 12:59 Oxygen Delivery Room Air 05/17/23 12:59 Temperature 98.4 F 05/17/23 12:59 Pulse Rate 72 05/17/23 16:30 Respiratory Rate 20 05/17/23 16:30 Blood Pressure 138/85 05/17/23 16:28 Pulse Oximetry 99 05/17/23 16:30 Oxygen Delivery Room Air 05/17/23 12:59 MDM - Female Genitourinary MDM Narrative Medical decision making narrative: Patient presents to the emergency department for urinary symptoms and flank pain. Ongoing over the last couple of days. She is afebrile and nontoxic-appearing. Her vitals are stable. CBC without leukocytosis. Metabolic panel without concerning findings. UA with possible evidence of infection. This will be sent for culture. Also shows some dehydration. She was hydrated with IV fluids in the ED. CT scan of the abdomen and pelvis is without acute findings. Patient will be started on oral antibiotics for UTI. She is to follow-up with primary provider. She was given warnings to return to the ER Differential Diagnosis Differential diagnosis: Likely urinary tract inf
[2023-05-17] MEDS: KETOROLAC 15 MG/ML VIAL (*BKC) IV PUSH (18:02)
== END 2023-05-17 19:15 | disposition home or self-care (01) ==
PROVIDERS: Emergency Medicine; Emergency Provider Physician Assistant; PCP Emergency Medicine
DX: N39.0 Urinary tract infection, site not specified (principal); I10 Essential (primary) hypertension; F41.9 Anxiety disorder, unspecified; F32.A Depression, unspecified
CPT/HCPCS: 36415; 74177; 80053; 81001; 81025; 83690; 85025; 87086; 87088; 96361; 96374; 99284; J1885; J7030; Q9967

== ENCOUNTER 2025-04-11 18:42 | Emergency (ER) | payer SELFPAY ==
[2025-04-11 18:54] VITALS: BP 168/89; PULSE 64; RESP 16; TEMP 36.9; O2SAT 100
--- NOTE | 2025-04-11 18:58 | ED.EXTPRO ---
HPI - Extremity Problem General Chief complaint: Extremity Problem,Nontraumatic <Marvin Pink APRN - Last Filed: 04/11/25 19:00> Stated complaint: swelling to legs <Marvin Pink APRN - Last Filed: 04/11/25 19:00> Time Seen by Provider: 04/11/25 22:14 <Marvin Pink APRN - Last Filed: 04/11/25 19:00> Focused HPI: 54-year-old female presents to the ER complaining of bilateral leg swelling that started this evening. Patient says she is on her feet all day at work for approximately 10 hours a day. The patient returned home for work she noticed that her ankles and feet or swollen. Patient denies any pain, redness fevers, body aches, chills, chest pain, shortness of breath, or any injuries. Patient denies any significant past medical history other than hypertension and high cholesterol. Patient is not wear compression stockings at work. GENERAL: Well-appearing, well-nourished, and in no acute distress. HEAD: Normocephalic, atraumatic. CHEST: Clear to auscultation. ?No respiratory distress. HEART: Regular rate and rhythm.? NEURO: ?Alert and oriented x3. MSK: Bilateral lower extremities below the knee or edematous that extended to the feet. Nonpitting. No redness, no pain, no drainage. Capillary refill less than 2 seconds. No palpable cord. Patient screened in triage and initial orders placed.? ?Additional care and disposition to be based upon?diagnostic testing and treatment. <Marvin Pink APRN - Last Filed: 04/11/25 19:00> History of Present Illness HPI Narrative: I agree with the assessment and documentation of Marvin Pink NP. <Jeni Mendez APRN - Last Filed: 04/12/25 01:10> Related Data Allergies/Adverse reactions: Allergies Allergy/AdvReac Type Severity Reaction Status Date / Time No Known Allergies Allergy Unknown Verified 04/11/25 19:00 <Marvin Pink APRN - Last Filed: 04/11/25 19:00> Review of Systems Review of Systems: All systems reviewed & are unremarkable except as noted in HPI and below <Jeni Mendez APRN - Last Filed: 04/12/25 01:10> [facility] Past Medical History Medical History: Medical History Vitamin D deficiency Slow transit constipation Hydrops of gallbladder Essential (primary) hypertension Dysthymic disorder Depression BMI 40.0-44.9, adult Constipation Tenesmus (rectal) Rectal pain, chronic Elevated LFTs Colitis Anxiety UTI (urinary tract infection) Dysuria Weight loss counseling, encounter for <Marvin Pink APRN - Last Filed: 04/11/25 19:00> Surgical History Surgical History: Surgical History S/P cholecystectomy History of surgery on wrist S/P insertion of spinal cord stimulator History of cholecystectomy <Marvin Pink APRN - Last Filed: 04/11/25 19:00> Family History Family History: Family History Mother Family history of malignant neoplasm of breast in first degree relative Other Depression Diabetes mellitus Family history of cardiovascular disease Heart disease Hypertension <Marvin Pink APRN - Last Filed: 04/11/25 19:00> Social History Social History: Social History Smoking status: Never smoker Alcohol intake: never Substance use: never Do You Feel Safe in your Home?: Yes Lack of Transportation: No Lack of Food: Never True Current Housing: I Have Housing Concerned About Future Housing: No Difficulty Paying Gas/Electric Bills: No Difficulty Paying for Meds: No Currently Unemployed: No Education: Trade/Vocational Certificate Difficulty w/ Childcare or Family Care: No Living arrangements: with family Spiritual care concerns: No <MARKUS Hillman Last Filed: 04/11/25 19:00> Exam Narrative: GENERAL: Well appearing, obese, non-toxic, in no acute distress. HEAD: Normocephalic, atraumatic. NECK: Supple. No adenopathy, no masses. RESPIRATORY: Airway patent, respirations nonlabored. Clear to auscultation bilaterally, no rales, rhonchi, wheezing. CARDIOVASCULAR: Regular rate and rhythm without murmurs, rubs, or gallops. Peripheral pulses 2+ and equal bilaterally. + bilateral lower extremity edema (slightly pitting) ABDOMINAL: Soft, nontender, nondistended, no hepatosplenomegaly. Normoactive BS. MUSCULOSKELETAL: Moves all extremities. Strength/ROM intact without gross deformities. SKIN: Warm, dry, normal color. No rashes. NEURO: A&O X3. Speech clear. Cranial nerves II-XII intact. No ataxic movements. PSYCHIATRIC: Appropriate mood and affect. Normal interaction. <Jeni Mendez, PARKING METER ATTENDANT - Last Filed: 04/12/25 01:10> Course Vital Signs Vital signs: Vital Signs Temperature 36.9 C 04/11/25 18:54 Pulse Rate 64 04/11/25 18:54 Respiratory Rate 16 04/11/25 18:54 Blood Pressure 168/89 H 04/11/25 18:54 Pulse Oximetry 100 04/11/25 18:54 Oxygen Delivery Room Air 04/11/25 18:54 Temperature 36.9 C 04/11/25 18:54 Pulse Rate 64 04/11/25 18:54 Respiratory Rate 16 04/11/25 18:54 Blood Pressure 168/89 H 04/11/25 18:54 Pulse Oximetry 100 04/11/25 18:54 Oxygen Delivery Room Air 04/11/25 18:54 <Marvin Pink, PARKING METER ATTENDANT - Last Filed: 04/11/25 19:00> Vital Signs Temperature 36.9 C 04/11/25 18:54 Pulse Rate 64 04/11/25 18:54 Respiratory Rate 16 04/11/25 18:54 Blood Pressure 168/89 H 04/11/25 18:54 Pulse Oximetry 100 04/11/25 18:54 Oxygen Delivery Room Air 04/11/25 18:54 Temperature 36.9 C 04/11/25 18:54 Pulse Rate 64 04/11/25 18:54 Respiratory Rate 16 04/11/25 18:54 Blood Pressure 168/89 H 04/11/25 18:54 Pulse Oximetry 100 04/11/25 18:54 Oxygen Delivery Room Air 04/11/25 18:54 <Jeni Mendez, PARKING METER ATTENDANT - Last Filed: 04/12/25 01:10> MDM - Extremity (Nontraumatic) MDM Narrative Medical decision making narrative: 54-year-old female presents to the ER complaining of bilateral leg swelling that started this evening. Patient says she is on her feet all day at work for approximately 10 hours a day. The patient returned home for work she noticed that her ankles and feet or swollen. Patient denies any pain, redness fevers, body aches, chills, chest pain, shortness of breath, or any injuries. Patient denies any significant past medical history other than hypertension and high cholesterol. Patient is not wear compression stockings at work. Labs Ordered: CBC, CMP, proBNP, CRP, troponin Imaging Ordered: 12 lead EKG Medications Ordered: Lasix 60mg PO x 1 Results: Patient's CBC indicates a red blood cell count of 3.9, hemoglobin of 11.1, hematocrit of 34.7%. Her chemistry indicates a BUN of 22. Patient's pro BMP is 544. Her troponin level was negative. Diagnosis: mild CHF, lower extremity edema Risks: HEART score: Low risk HEART Score for Major Cardiac Events from [email or web address] on 04/11/2025 All calculations should be rechecked by clinician prior to use RESULT SUMMARY: 3 points Low Score (0-3 points) Risk of MACE of 0.9-1.7%. INPUTS: History ?> 1 = Moderately suspicious EKG ?> 0 = Normal Age ?> 1 = 45-64 Risk factors ?> 1 = 1-2 risk factors Initial troponin ?> 0 = <Normal limit Patient Education/Shared MDM: Results of lab work shared with patient. She continues to deny any chest pain or shortness of breath. They endorses improvement of symptoms following medication administration. Patient strongly advised to maintain hydration status upon discharge and follow-up with their PCP as soon as possible. She will not be discharged home with any new prescriptions, as this provider is unable to follow up with her. Pt will also be given the name of a cigarette inspector for follow-up. Strict return precautions provided. Patient verbalized understanding and is in agreement with plan. Vital signs stable at time of discharge. All questions answered. <Jeni Mendez APRN - Last Filed: 04/12/25 01:10> Differential Diagnosis Differential diagnosis: Likely lower extremity edema and other (Congestive heart failure, cellulitis) <Jeni Mendez APRN - Last Filed: 04/12/25 01:10> Lab Data Attestation: I reviewed the patient's lab results. <Jeni Mendez APRN - Last Filed: 04/12/25 01:10> Result diagrams: 04/11/25 19:45 04/11/25 19:45 <Marvin Pink APRN - Last Filed: 04/11/25 19:00> Labs: Lab Results 04/11/25 Range/Units 19:45 WBC 6.8 (4.5-10.0) K/mm3 RBC 3.90 L (4.2-5.4) M/mm3 Hgb 11.1 L D (12.0-15.0) g/dL Hct 34.7 L (37.0-47.0) % MCV 89.0 (80-100) fl MCH 28.5 (26-34) pg MCHC 32.0 (32-36) g/dl RDW 13.2 (11.5-14.5) % Plt Count 176 (150-375) k/mm3 MPV 9.1 (7.4-10.4) fl Immature Gran % (Auto) 0.9 H (0-0.5) % Neut % (Auto) 51.3 (45.5-73.1) % Lymph % (Auto) 37.2 (18.3-44.2) % Woodson % (Auto) 7.5 (2.6-8.5) % Eos % (Auto) 2.4 (0-4.4) % Baso % (Auto) 0.7 (0.2-1.2) % Lymph # (Auto) 2.52 (0.9-3.2) K/mm3 Woodson # (Auto) 0.5 (0.1-0.6) K/mm3 Eos # (Auto) 0.2 (0-0.3) K/mm3 Baso # (Auto) 0.1 (0.0-0.1) K/mm3 Abs Immat Gran (auto) 0.06 H (0.00-0.031) K/mm3 Absolute Neuts (auto) 3.5 (1.3-6.7) K/mm3 Absolute Nucleated RBC 0.000 (0.0-0.012) K/mm3 Nucleated RBC % 0.0 (0.0-0.2) % Sodium 139 (137-145) mmol/L Potassium 4.1 (3.4-5.0) mmol/L Chloride 105 (98-107) mmol/L Carbon Dioxide 28 (22-30) mmol/L Anion Gap 6 (4-12) mmol/L BUN 22 H (7-17) mg/dL Creatinine 0.75 (0.7-1.0) mg/dL Estim Creat Clear Calc 95 ml/min Estimated GFR > 60 (59 - ) Glucose 98 (65-110) mg/dL Calcium 9.1 (8.4-10.2) mg/dL Total Bilirubin 0.3 (0.2-1.3) mg/dL AST 29 (14-36) U/L ALT 20 (6-35) U/L Alkaline Phosphatase 87 (38-126) U/L Troponin I < 0.012 (0.000-0.034) ng/mL C-Reactive Protein < 0.5 (<1.0) mg/dL NT-Pro-B Natriuret Pep 544 H (19.9-100) pg/mL Total Protein 7.2 (6.3-8.2) g/dL Albumin 4.2 (3.5-5.1) g/dL <Marvin Pink, PARKING METER ATTENDANT - Last Filed: 04/11/25 19:00> Lab Results 04/11/25 Range/Units 19:45 WBC 6.8 (4.5-10.0) K/mm3 RBC 3.90 L (4.2-5.4) M/mm3 Hgb 11.1 L D (12.0-15.0) g/dL Hct 34.7 L (37.0-47.0) % MCV 89.0 (80-100) fl MCH 28.5 (26-34) pg MCHC 32.0 (32-36) g/dl RDW 13.2 (11.5-14.5) % Plt Count 176 (150-375) k/mm3 MPV 9.1 (7.4-10.4) fl Immature Gran % (Auto) 0.9 H (0-0.5) % Neut % (Auto) 51.3 (45.5-73.1) % Lymph % (Auto) 37.2 (18.3-44.2) % Woodson % (Auto) 7.5 (2.6-8.5) % Eos % (Auto) 2.4 (0-4.4) % Baso % (Auto) 0.7 (0.2-1.2) % Lymph # (Auto) 2.52 (0.9-3.2) K/mm3 Woodson # (Auto) 0.5 (0.1-0.6) K/mm3 Eos # (Auto) 0.2 (0-0.3) K/mm3 Baso # (Auto) 0.1 (0.0-0.1) K/mm3 Abs Immat Gran (auto) 0.06 H (0.00-0.031) K/mm3 Absolute Neuts (auto) 3.5 (1.3-6.7) K/mm3 Absolute Nucleated RBC 0.000 (0.0-0.012) K/mm3 Nucleated RBC % 0.0 (0.0-0.2) % Sodium 139 (137-145) mmol/L Potassium 4.1 (3.4-5.0) mmol/L Chloride 105 (98-107) mmol/L Carbon Dioxide 28 (22-30) mmol/L Anion Gap 6 (4-12) mmol/L BUN 22 H (7-17) mg/dL Creatinine 0.75 (0.7-1.0) mg/dL Estim Creat Clear Calc 95 ml/min Estimated GFR > 60 (59 - ) Glucose 98 (65-110) mg/dL Calcium 9.1 (8.4-10.2) mg/dL Total Bilirubin 0.3 (0.2-1.3) mg/dL AST 29 (14-36) U/L ALT 20 (6-35) U/L Alkaline Phosphatase 87 (38-126) U/L Troponin I < 0.012 (0.000-0.034) ng/mL C-Reactive Protein < 0.5 (<1.0) mg/dL NT-Pro-B Natriuret Pep 544 H (19.9-100) pg/mL Total Protein 7.2 (6.3-8.2) g/dL Albumin 4.2 (3.5-5.1) g/dL <Jenitatiana Mendez, PARKING METER ATTENDANT - Last Filed: 04/12/25 01:10> Discharge Plan Discharge Clinical Impression: Bilateral edema of lower extremity <Marvin Pink APRN - Last Filed: 04/11/25 19:00> Patient Disposition: Home <Marvin Pink APRN - Last Filed: 04/11/25 19:00> Condition: Stable <Marvin Pink APRN - Last Filed: 04/11/25 19:00> Instructions: Antibiotic Form, Leg Edema (ED) <Marvin Pink APRN - Last Filed: 04/11/25 19:00> Additional Instructions: Please return to the ER with any worsening symptoms. Follow-up with primary care provider as soon as possible. You may also follow-up with cigarette inspector as needed. Take all regularly scheduled medications. Please try to cut down on the sodium intake in your diet, drink more water, and put your feet up above the level of your heart as much as possible. <Marvin Pink APRN - Last Filed: 04/11/25 19:00> Patient Language: Turkmen <Marvin Pink APRN - Last Filed: 04/11/25 19:00> Prescriptions: No Action bupropion HCl 150 mg tablet extended release 24 hr See Rx Instructions .ROUTE .COMPLEX Qty: 90 2RF Dose Instruction: TAKE 1 TABLET(150 MG) BY MOUTH EVERY DAY Rx Instructions: TAKE 1 TABLET(150 MG) BY MOUTH EVERY DAY omeprazole 40 mg capsule,delayed release(DR/EC) See Rx Instructions .ROUTE .COMPLEX Qty: 90 2RF Dose Instruction: TAKE 1 CAPSULE BY MOUTH DAILY Rx Instructions: TAKE 1 CAPSULE BY MOUTH DAILY topiramate 25 mg tablet 25 mg PO BID Qty: 180 2RF rosuvastatin 10 mg tablet 10 mg PO DAILY Qty: 90 2RF metoprolol tartrate 50 mg tablet See Rx Instructions .ROUTE .COMPLEX Qty: 180 2RF Dose Instruction: TAKE 1 TABLET BY MOUTH TWICE DAILY Rx Instructions: TAKE 1 TABLET BY MOUTH TWICE DAILY phentermine 37.5 mg tablet 37.5 mg PO DAILY Qty: 30 0RF Rx Instructions: must administer 30 minutes before or 1-2 hours after breakfast <Marvinyessica Pink APRN - Last Filed: 04/11/25 19:00> Follow-up/Referrals: Darren Hyde MD [Primary Care Provider] - <Marvin Pink APRN - Last Filed: 04/11/25 19:00> Stand Alone Forms: Work/School Release IP <Marvin Pink APRN - Last Filed: 04/11/25 19:00> Time of Disposition: 01:10 <Marvin Pink APRN - Last Filed: 04/11/25 19:00> 01:10 <Jeni Mendez APRN - Last Filed: 04/12/25 01:10>
[2025-04-11 19:59] LABS: Hematocrit 34.7 % (37.0-47.0); Hemoglobin 11.1 g/dL (12.0-15.0); Immature Granulocyte Percent A 0.9 % (0-0.5); Lymphocytes Absolute Auto 2.52 K/mm3 (0.9-3.2); Mean Corpuscular HGB Conc 32.0 g/dl (32-36); Mean Corpuscular Hemoglobin 28.5 pg (26-34); Mean Corpuscular Volume 89.0 fl (80-100); Nucleated Red Blood Cells Absolute Auto 0.000 K/mm3 (0.0-0.012); Nucleated Red Blood Cells Perc 0.0 % (0.0-0.2); Platelet Count Result 176 k/mm3 (150-375); Red Blood Count 3.90 M/mm3 (4.2-5.4); White Blood Count 6.8 K/mm3 (4.5-10.0)
[2025-04-11 20:16] LABS: Alanine Aminotransferase 20 U/L (6-35); Albumin Level 4.2 g/dL (3.5-5.1); Alkaline Phosphatase 87 U/L (38-126); Anion Gap 6 mmol/L (4-12); Aspartate Amino Transferase 29 U/L (14-36); Bilirubin,Total 0.3 mg/dL (0.2-1.3); Blood Urea Nitrogen 22 mg/dL (7-17); CRP < 0.5 mg/dL (<1.0); Calcium 9.1 mg/dL (8.4-10.2); Carbon Dioxide 28 mmol/L (22-30); Chloride 105 mmol/L (98-107); Estimated CRCL calculation 95 ml/min; Estimated Glomerular Filt Rate > 60; Glucose 98 mg/dL (65-110); Potassium 4.1 mmol/L (3.4-5.0); Sodium 139 mmol/L (137-145); Total Protein 7.2 g/dL (6.3-8.2)
[2025-04-11 20:21] LABS: NT Pro B Type Natriuretic Pept 544 pg/mL (19.9-100)
--- NOTE | 2025-04-11 22:54 | ECG_ITS ---
Test Date: 2025-04-11 23:07:46 Measurements Intervals [place] Rate: 58 P: 17 W[place]: 167 QRS: 14 QRSD: 93 T: 45 QT: 439 QTc: 434 Interpretive Statements SINUS BRADYCARDIA BASELINE ARTIFACT- I, II, III, AVR, AVL A,VF BORDERLINE ECG No previous ECG available for comparison Electronically Signed On 04-12-2025 09:14:26 CDT by Rl Sofia D.O.
[2025-04-11 23:32] LABS: Troponin I < 0.012 ng/mL (0.000-0.034)
[2025-04-12] MEDS: FUROSEMIDE TABLET 20 MG, FUROSEMIDE TABLET 40 MG 60 MG PO (00:04)
== END 2025-04-12 01:20 | disposition home or self-care (01) ==
PROVIDERS: Emergency Provider Registered Nurse; PCP Emergency Medicine
DX: R60.0 Localized edema (principal); I10 Essential (primary) hypertension; E55.9 Vitamin D deficiency, unspecified; F32.A Depression, unspecified; F41.9 Anxiety disorder, unspecified; Z96.82 Presence of neurostimulator; Z87.440 Personal history of urinary (tract) infections; Z90.49 Acquired absence of other specified parts of digestive tract; Z79.899 Other long term (current) drug therapy; R00.1 Bradycardia, unspecified
CPT/HCPCS: 36415; 80053; 83880; 84484; 85025; 86140; 93005; 99284; A9270

== ENCOUNTER 2025-05-09 13:11 | Emergency (ER) | payer OTHER, SELFPAY ==
--- NOTE | ~2025-05-09 | CT_ITS ---
EXAMINATION: CT abdomen pelvis w con DATE: 05/09/2025 15:10 INDICATION: Low abdomen pain TECHNIQUE: Computed tomography (CT) of the abdomen and pelvis was performed without intravenous contrast. The dose-length product was 1133.54 mGy-cm. Automated exposure control and iterative reconstruction technique were employed. COMPARISON: CT dated 05/17/2023. FINDINGS: Lung bases unremarkable. Heart size normal. No significant pleural or pericardial effusion. Status post cholecystectomy. The liver, spleen, pancreas, adrenal glands and kidneys are unremarkable. Status post cholecystectomy. Nonobstructive bowel gas. No significant vascular abnormality. No lym phadenopathy. No abnormal pelvic masses or fluid collections. No free air or free fluid. No acute bone or joint abnormality. There is moderate-severe lower lumbar spondylosis. IMPRESSION: 1. No acute abdominal abnormality. Reviewed, dictated and finalized at location O.
[2025-05-09 13:53] LABS: BEDSIDEPREGUCG Negative (Negative)
[2025-05-09 14:01] LABS: Hematocrit 37.4 % (37.0-47.0); Hemoglobin 12.5 g/dL (12.0-15.0); Immature Granulocyte Percent A 0.9 % (0-0.5); Lymphocytes Absolute Auto 2.69 K/mm3 (0.9-3.2); Mean Corpuscular HGB Conc 33.4 g/dl (32-36); Mean Corpuscular Hemoglobin 28.7 pg (26-34); Mean Corpuscular Volume 86.0 fl (80-100); Nucleated Red Blood Cells Absolute Auto 0.000 K/mm3 (0.0-0.012); Nucleated Red Blood Cells Perc 0.0 % (0.0-0.2); Platelet Count Result 185 k/mm3 (150-375); Red Blood Count 4.35 M/mm3 (4.2-5.4); White Blood Count 7.9 K/mm3 (4.5-10.0)
[2025-05-09 14:09] LABS: Anion Gap 9 mmol/L (4-12); Blood Urea Nitrogen 18 mg/dL (7-17); Calcium 9.5 mg/dL (8.4-10.2); Carbon Dioxide 23 mmol/L (22-30); Chloride 107 mmol/L (98-107); Estimated CRCL calculation 79 ml/min; Estimated Glomerular Filt Rate > 60; Glucose 106 mg/dL (65-110); Potassium 4.1 mmol/L (3.4-5.0); Sodium 139 mmol/L (137-145)
[2025-05-09 14:12] LABS: Add Urine Microscopic? YES; Appearance Urine Cloudy (Clear); Glucose Urine UA Negative (Negative); Leukocyte Esterase Ur Negative LEU/UL (Negative); Nitrate Urine Negative (Negative); Specific Grav Ur 1.042 (1.001-1.035)
--- NOTE | 2025-05-09 14:19 | ED_ITS ---
HPI - Female Genitourinary General Chief complaint: Urogenital-Female Stated complaint: back pain, recent UTI Time Seen by Provider: 05/09/25 13:23 Source: patient Mode of arrival: ambulatory Limitations: no limitations History of Present Illness HPI Narrative: This is a 54 year old female that presents to the ER for low back pain. Reports she was recently treated for a UTI with Macrobid. Reports finishing this course on Wednesday. Reports she has had bilateral low back and lower abdominal pain today which prompted her to be seen. Denies fever, vomiting, dysuria, hematuria. Related Data Allergies Allergy/AdvReac Type Severity Reaction Status Date / Time No Known Allergies Allergy Unknown Verified 04/30/25 11:09 Review of Systems 2 Review of Systems: All systems reviewed & are unremarkable except as noted in HPI and below PMFSH Past Medical History Medical History Vitamin D deficiency Slow transit constipation Hydrops of gallbladder Essential (primary) hypertension Dysthymic disorder Depression BMI 40.0-44.9, adult Constipation Tenesmus (rectal) Rectal pain, chronic Elevated LFTs Colitis Anxiety UTI (urinary tract infection) Dysuria Weight loss counseling, encounter for Surgical History Surgical History S/P cholecystectomy History of surgery on wrist S/P insertion of spinal cord stimulator History of cholecystectomy Family History Family History Mother Family history of malignant neoplasm of breast in first degree relative Other Depression Diabetes mellitus Family history of cardiovascular disease Heart disease Hypertension Social History Social History (Updated 05/03/25 @ 12:00 by Roxy Holland MA) Smoking status: Never smoker Alcohol intake: never Substance use: never Do You Feel Safe in your Home?: Yes Lack of Transportation: No Lack of Food: Never True Current Housing: I Have Housing Concerned About Future Housing: No Difficulty Paying Gas/Electric Bills: No Difficulty Paying for Meds: No Currently Unemployed: No Education: Trade/Vocational Certificate Difficulty w/ Childcare or Family Care: No Living arrangements: with family Spiritual care concerns: No Exam 2 Narrative: GENERAL: Well-appearing, well-nourished, and in no acute distress. HEAD: Normocephalic, atraumatic. EYES: EOMI. CHEST: Clear to auscultation. No respiratory distress. No wheezes rales or rhonchi HEART: Regular rate and rhythm. No murmur heard. Normal peripheral pulses. ABDOMEN: Soft, nontender, nondistended, normal active bowel sounds. No CVA tenderness EXTREMITIES: Normal range of motion. No edema. SKIN: Warm, dry, no rash. NEURO: No focal deficits. Alert and oriented x3. PSYCH: Normal mood and affect Course Course Emergency Course: patient updated on her workup and agrees with plan of care Vital Signs Vital signs: Vital Signs Temperature 98.1 F 05/09/25 15:21 Pulse Rate 65 05/09/25 15:21 Respiratory Rate 18 05/09/25 15:21 Blood Pressure 101/54 L 05/09/25 15:21 Pulse Oximetry 98 05/09/25 15:21 Temperature 98.1 F 05/09/25 15:21 Pulse Rate 65 05/09/25 15:21 Respiratory Rate 18 05/09/25 15:21 Blood Pressure 101/54 L 05/09/25 15:21 Pulse Oximetry 98 05/09/25 15:21 MDM - Female Genitourinary MDM Narrative Medical decision making narrative: Patient presents the emergency department for low back pain. Reports recently finishing antibiotics for a UTI. She is afebrile and nontoxic appearing. Her vitals are stable. Cbc without leukocytosis. Metabolic panel without concerning findings. Urine without evidence of infection. test is negative. CT abdomen and pelvis without acute findings. Patient was updated on her workup and agrees with plan of care. She is to follow up with primary provider. She was given warnings to return to the ER Differential Diagnosis Differential diagnosis: Likely urinary tract infection and other (kidney stone, pyelonephritis) Lab Data Attestation: I reviewed the patient's lab results. 05/09/25 13:47 05/09/25 13:48 Labs: Lab Results 05/09/25 05/09/25 05/09/25 Range/Units 13:23 13:47 13:48 WBC 7.9 (4.5-10.0) K/mm3 RBC 4.35 (4.2-5.4) M/mm3 Hgb 12.5 (12.0-15.0) g/dL Hct 37.4 (37.0-47.0) % MCV 86.0 (80-100) fl MCH 28.7 (26-34) pg MCHC 33.4 (32-36) g/dl RDW 13.2 (11.5-14.5) % Plt Count 185 (150-375) k/mm3 MPV 8.9 (7.4-10.4) fl Immature Gran % (Auto) 0.9 H (0-0.5) % Neut % (Auto) 56.6 (45.5-73.1) % Lymph % (Auto) 34.0 (18.3-44.2) % [place] % (Auto) 5.3 (2.6-8.5) % Eos % (Auto) 2.7 (0-4.4) % Baso % (Auto) 0.5 (0.2-1.2) % Lymph # (Auto) 2.69 (0.9-3.2) K/mm3 [place] # (Auto) 0.4 (0.1-0.6) K/mm3 Eos # (Auto) 0.2 (0-0.3) K/mm3 Baso # (Auto) 0.0 (0.0-0.1) K/mm3 Abs Immat Gran (auto) 0.07 H (0.00-0.031) K/mm3 Absolute Neuts (auto) 4.5 (1.3-6.7) K/mm3 Absolute Nucleated RBC 0.000 (0.0-0.012) K/mm3 Nucleated RBC % 0.0 (0.0-0.2) % Sodium 139 (137-145) mmol/L Potassium 4.1 (3.4-5.0) mmol/L Chloride 107 (98-107) mmol/L Carbon Dioxide 23 (22-30) mmol/L Anion Gap 9 (4-12) mmol/L BUN 18 H (7-17) mg/dL Creatinine 0.83 (0.7-1.0) mg/dL Estim Creat Clear Calc 79 ml/min Estimated GFR > 60 (59 - ) Glucose 106 (65-110) mg/dL Calcium 9.5 (8.4-10.2) mg/dL Urine Color Yellow (Yellow) Urine Appearance Cloudy H (Clear) Urine pH 5.0 (5.0-9.0) Ur Specific [place] 1.042 H (1.001-1.035) Urine Protein 1+ H (Negative) mg/dL Urine Glucose (UA) Negative (Negative) mg/dL Urine Ketones Negative (Negative) mg/dL Ur Blood (Man) Negative (Negative) Urine Nitrate Negative (Negative) Urine Bilirubin Negative (Negative) Urine Urobilinogen 1.0 (<2.0) mg/dL Leukocyte Esterase Rfl Negative (Negative) [place]/UL Urine RBC 0-2 (0-2) /hpf Urine WBC 0-5 (0-3) /hpf Ur Squamous Epith Cells None seen (Few) /hpf Urine Bacteria None seen /hpf Urine Casts 3-5 POC Urine HCG, Qual Negative (Negative) Imaging Data Radiologist's impression: ITS Impressions Abdomen/Pelvis CT 05/09/25 15:18 IMPRESSION: 1. No acute abdominal abnormality. Critical Care Time Critical Care Time Critical Care Time: No Discharge Plan Discharge Clinical Impression: Lumbar spondylosis Patient Disposition: Home Condition: Stable Instructions: Lumbar Radiculopathy (ED) Additional Instructions: Return to the ER if you experience weakness, numbness, bowel/bladder incontinence, or any other symptoms that are concerning to you Rest, use ice/heat, take anti-inflammatories (Aleve, Ibuprofen, Naproxen, etc) or Tylenol as needed for pain as well as muscle relaxer (Flexeril) as needed for pain. Muscle relaxers can make you drowsy, do not drive if you take this Follow up with your primary care doctor Patient Language: [place] Prescriptions: New cyclobenzaprine 10 mg tablet 10 mg PO TID PRN (Reason: muscle spasm) Qty: 14 0RF No Action bupropion HCl 150 mg tablet extended release 24 hr See Rx Instructions .ROUTE .COMPLEX Qty: 90 2RF Dose Instruction: TAKE 1 TABLET(150 MG) BY MOUTH EVERY DAY Rx Instructions: TAKE 1 TABLET(150 MG) BY MOUTH EVERY DAY omeprazole 40 mg capsule,delayed release(DR/EC) See Rx Instructions .ROUTE .COMPLEX Qty: 90 2RF Dose Instruction: TAKE 1 CAPSULE BY MOUTH DAILY Rx Instructions: TAKE 1 CAPSULE BY MOUTH DAILY rosuvastatin 10 mg tablet 10 mg PO DAILY Qty: 90 2RF metoprolol tartrate 50 mg tablet See Rx Instructions .ROUTE .COMPLEX Qty: 180 2RF Dose Instruction: TAKE 1 TABLET BY MOUTH TWICE DAILY Rx Instructions: TAKE 1 TABLET BY MOUTH TWICE DAILY phentermine 37.5 mg tablet 37.5 mg PO DAILY Qty: 30 0RF Rx Instructions: must administer 30 minutes before or 1-2 hours after breakfast topiramate 25 mg tablet 25 mg PO BID Qty: 180 2RF Follow-up/Referrals: Darren Hyde MD [Primary Care Provider, Internal Medicine]
[2025-05-09] MEDS: SODIUM CHLORIDE 0.9% IV 1,000 ML 999 ML IV CONT (14:51)
[2025-05-09 15:21] VITALS: BP 101/54; PULSE 65; RESP 18; TEMP 36.7; O2SAT 98
[2025-05-09 16:24] VITALS: BP 170/35; PULSE 75; RESP 18; O2SAT 99
== END 2025-05-09 16:27 | disposition home or self-care (01) ==
PROVIDERS: Emergency Provider Physician Assistant; PCP Emergency Medicine
DX: M47.816 Spondylosis without myelopathy or radiculopathy, lumbar region (principal); E55.9 Vitamin D deficiency, unspecified; I10 Essential (primary) hypertension; F32.A Depression, unspecified; F41.9 Anxiety disorder, unspecified; Z87.440 Personal history of urinary (tract) infections; Z90.49 Acquired absence of other specified parts of digestive tract; Z79.899 Other long term (current) drug therapy
CPT/HCPCS: 36415; 74177; 80048; 81001; 81025; 85025; 96360; 99284; J7030; Q9967

== ENCOUNTER 2025-05-12 09:02 | Outpatient (CLI) | payer OTHER, SELFPAY ==
--- NOTE | ~2025-05-12 | XR_ITS ---
Lumbar spine series Indication: Dorsalgia Comparison: CT abdomen and pelvis 05/09/2025 Technique: 3 views lumbar spine Findings: 5 nonrib-bearing lumbar-type vertebral bodies. No acute fracture. Trace anterolisthesis L3 on 4. Trace retrolisthesis L4 on 5. Vertebral bodies normal height. Mild disc disease L4-S1. Mild posterior element degenerative changes below L3. SI joints congruent. Sacrum intact. IMPRESSION: 1. No acute findings. Reviewed, dictated and finalized at location R. IMPRESSION: 1. No acute findings.
== END 2025-05-12 09:03 | disposition home or self-care (01) ==
LOC: ANHIMG 09:04
PROVIDERS: PCP Emergency Medicine; Visit Provider Emergency Medicine
DX: M54.9 Dorsalgia, unspecified (principal); G89.29 Other chronic pain
CPT/HCPCS: 72100